=== PATIENT | female | born 1950 | race Caucasian/White ===

== ENCOUNTER → 2017-02-28 | Outpatient (CLI) | payer MEDICARE ==
[~2017-02-28] MED LIST: ESOM40CA; ESTR0.5T3; SULF-16
[2017-02-28 12:46] LABS: HEMOGLOBIN 14.9 g/dL (11.7-16.4); WHITE BLOOD COUNT 7.5 x10^3/uL (3.4-10)
[2017-02-28 13:00] LABS: ASPARTATE AMINO TRANSFERASE 24 U/L (15-37); BLOOD UREA NITROGEN 23 mg/dL (7-18)
== END | disposition home or self-care (01) ==
LOC: CFH 11:02
PROVIDERS: ATTEND Nurse Practitioner Primary Care
DX: Z12.4 Encounter for screening for malignant neoplasm of cervix (principal); Z12.11 Encounter for screening for malignant neoplasm of colon; K21.9 Gastro-esophageal reflux disease without esophagitis; E55.9 Vitamin D deficiency, unspecified; G62.9 Polyneuropathy, unspecified; N28.9 Disorder of kidney and ureter, unspecified; E78.2 Mixed hyperlipidemia; G56.00 Carpal tunnel syndrome, unspecified upper limb; I34.8 Other nonrheumatic mitral valve disorders; N39.0 Urinary tract infection, site not specified; E78.1 Pure hyperglyceridemia; M54.2 Cervicalgia; N64.4 Mastodynia; R79.9 Abnormal finding of blood chemistry, unspecified
CPT/HCPCS: 36415; 80053; 85025

== ENCOUNTER 2017-05-06 13:24 | Emergency (ER) | payer MEDICARE ==
[~2017-05-06] VITALS: Ht 160 cm; Wt 73.0 kg
[2017-05-06 13:25] VITALS: BP 122/78
[2017-05-06] MEDS ORDERED: FLUORESCEIN OPHTHALMIC 1 MG STRIP ONE (13:44)
[2017-05-06] MEDS ORDERED: PROPARACAINE OPHTH 0.5%, 15ML ONE (13:45)
== END 2017-05-06 14:17 | disposition home or self-care (01) ==
LOC: ED 13:37
DX: H10.13 Acute atopic conjunctivitis, bilateral (principal); B00.1 Herpesviral vesicular dermatitis; Z90.710 Acquired absence of both cervix and uterus; Z90.721 Acquired absence of ovaries, unilateral
CPT/HCPCS: 99283

== ENCOUNTER → 2017-05-06 | Outpatient (CLI) | payer MEDICARE ==
[2017-05-10 19:07] LABS: HSV 1 IGG TYPE SPECIFIC <0.91 index (0.00-0.90); HSV 2 IGG TYPE SPECIFIC <0.91 index (0.00-0.90); HSV I/II IGM COMBO 0.91 Ratio (0.00-0.90)
== END | disposition home or self-care (01) ==
LOC: LAB 12:39
PROVIDERS: ATTEND Physician Assistant
DX: N39.0 Urinary tract infection, site not specified (principal); R21 Rash and other nonspecific skin eruption
CPT/HCPCS: 36415; 81003; 86694; 86695; 86696; 87086

== ENCOUNTER 2018-10-28 18:19 | Emergency (ER) | payer MEDICARE ==
[2018-10-28] MEDS ORDERED: IBUPROFEN 200 MG TABLET ONE (19:04)
[2018-10-28] MEDS ORDERED: IBUPROFEN 600 MG TABLET PO ONE (19:30)
[2018-10-28 19:32] VITALS: BP 135/74
== END 2018-10-28 19:39 | disposition home or self-care (01) ==
LOC: ED 18:50
DX: L24.5 Irritant contact dermatitis due to other chemical products (principal); E78.00 Pure hypercholesterolemia, unspecified
CPT/HCPCS: 99282

== ENCOUNTER 2020-03-12 08:58 | Emergency (ER) | payer MEDICARE ==
--- NOTE | 2020-03-12 10:14 | NUR ---
[employer]ARD WORKER: PT TO ROOM FROM [facility]
[2020-03-12 10:18] VITALS: BP 134/69
--- NOTE | 2020-03-12 10:21 | NUR ---
PT VSS, TEST RESULTED CHART UP FOR RECHECK
--- NOTE | 2020-03-12 11:10 | NUR ---
Patient/Caregiver given discharge instructions and they have confirmed that they understand the instructions. Patient ambulatory with steady gait.
== END 2020-03-12 11:11 | disposition home or self-care (01) ==
LOC: ED 10:26
DX: M94.0 Chondrocostal junction syndrome [Tietze] (principal); R22.2 Localized swelling, mass and lump, trunk; E78.00 Pure hypercholesterolemia, unspecified; Z90.710 Acquired absence of both cervix and uterus; Z90.89 Acquired absence of other organs; Z90.721 Acquired absence of ovaries, unilateral
CPT/HCPCS: 99283

== ENCOUNTER → 2020-03-31 | Outpatient (CLI) | payer MEDICARE | END | disposition home or self-care (01) | LOC: CFH 12:49 | PROVIDERS: ATTEND Internal Medicine Cardiovascular Disease | DX: Z13.6 Encounter for screening for cardiovascular disorders (principal); E78.2 Mixed hyperlipidemia | CPT/HCPCS: 75571 ==